=== PATIENT | female | born 1955 | race Caucasian/White ===

== ENCOUNTER 2017-01-23 16:33 | Emergency (ER) | payer OTHER ==
[2017-01-23 16:59] VITALS: RESP 15; TEMP 96.8
[2017-01-23] MEDS ORDERED: HYDROcodone-APAP 5 MG -325 MG TABLET PO ONE (17:03)
--- NOTE | 2017-01-23 17:07 | PDOC ---
Hand / Wrist Injury HPI - General Chief Complaint: Upper Extremity Problem/Injury Stated Complaint: SMASHED LEFT 2ND-4TH FINGERS AGAINST TRUCK Date Seen by Provider: 01/23/17 Time Seen by Provider: 17:04 Source: POSITIVE: Patient Exam Limitations: POSITIVE: No limitations Nurse's Notes Reviewed & Considered: Yes - History of Present Illness Initial Comments: This is a very pleasant 61-year-old female complaining of left hand pain. 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 She was wearing gloves at the time. Her third fourth and fifth finger were smashed and she put them into ice, also took ibuprofen. She comes in now because of continued pain predominantly in her ring and little finger. She denies any other injuries. Have you received a tetanus shot in the past 10 years?: Yes Body Location Affected: REPORTS: Upper Extremity (L) Timing: REPORTS: Abrupt Duration: 1 hour Severity: Moderate Location at Time of Onset: REPORTS: Work Context: REPORTS: Crush Location of Injury: REPORTS: Left, Hand, 3rd Finger, 4th Finger, 5th Finger Quality: REPORTS: Aching, "Pain", Sharpness, Throbbing Modifying Factors: REPORTS: Movement, Rest, Ice Associated Symptoms: REPORTS: Loss of Power Any Prior Injuries Related to Current Complaint?: No - Patient Home Medications Home Medications: Home Medications NK [No Home Medications Reported] 01/23/17 - Patient Allergies Allergies/Adverse Reactions: Allergies Allergy/AdvReac Type Severity Reaction Status Date / Time No Known Allergies Allergy Verified 01/23/17 16:42 Past Medical History - heen HEENT History: Denies History Cardiovascular History: Denies History Respiratory History: Denies History Gastrointestinal History: Denies History Genitourinary History: Denies History Endocrine History: Denies History Musculoskeletal History: Other (please comment) Prosthesis or Implant: No Additional Musculoskeletal History: MULTIPLE LEFT KNEE SURGERIES Neurological History: Denies History Blood Disorders: Denies History Psychiatric History: Denies History History of Sexually Transmitted Diseases: No Female Reproductive History: Hysterectomy Obstetrical History: Denies History Cancer History: Denies History In Past Year Been Physically Harmed or Verbally Threatened: No (PER PATIENT) History of MDRO: No History of Other Communicable Diseases: No Tobacco Use: Current Every Day Smoker Alcohol Use: None Substance Use Type: None Previous Surgical History: Yes Type / Date of Surgery: LEFT KNEE x5, PARTIAL HYSTERECTOMY Anesthesia Reactions: No Malignant Hyperthermia: No Family History of Malignant Hyperthermia: No ROS Constitution: REPORTS: Denies Symptoms Cardiovascular: REPORTS: Denies Cardiac Symptoms Respiratory: REPORTS: Denies Resp Symptoms Neurological: REPORTS: Denies Neuro Symptoms Gastrointestinal: REPORTS: Denies GI Symptoms Endocrine: REPORTS: Denies Symptoms Musculoskeletal: REPORTS: Joint Pain, Recent Injury Genitourinary: REPORTS: Denies Symptoms Eyes: REPORTS: Denies Symptoms ENT: REPORTS: Denies Symptoms Skin: REPORTS: Denies Skin Symptoms Lympathic: REPORTS: Denies Lympathic Symptoms Immunologic: POSITIVE: Denies Symptoms Psychiatric: POSITIVE: Denies Psych Symptoms Hand / Wrist Injury Exam - General Appearance General Appearance: POSITIVE: Alert, Cooperative, No Acute Distress - Extremities Upper Extremity: POSITIVE: No Evidence of FB, Soft Tissue Tenderness, Bony Tenderness, Ecchymosis, Limited ROM d/t Pain Neurovascular / Tendon: POSITIVE: Sensation Normal, Motor Normal, No Vascular Compromise, Tendon Function Normal Skin: POSITIVE: Warm, Dry - HEENT HEENT: POSITIVE: Head Inspection Nml, Eyes Inspection Nml, Ears Inspection Nml, Nose Inspection Nml, Oral/Dental Inspect. Nml, Pharynx Inspect. Nml, PERRL, EOMI - Respiratory / CVS Respiratory / CVS: POSITIVE: No Respiratory Distress Hand / Wrist Injury Progress - Results Reviewed by me Xrays/CTs/US Reviewed by me: Yes Discussed with Radiologist: Yes - Patient's Progress Pain Medication Addressed: POSITIVE: Yes Re-Examine Time: 18:30 Status: POSITIVE: Improved MDM / ED Course: Patient was evaluated, she received a [place] tablet, and x-rays of her left hand. Findings: X-ray of her left hand as read by me shows no acute osseous abnormalities. Fracture cannot be ruled out. Assessment: Crush injury left hand. Plan: Ulnar gutter splint, ibuprofen and Tylenol as needed, follow-up with orthopedics if no improvement in 7-10 days. - Consult Counseled: POSITIVE: Patient, RE: Radiology Results, RE: DX, RE: Need for F/U Patient Care Time - Estimated PCT Patient Care Time (In Minutes): 20 Vital Signs - Recent Vital Signs Vital Signs: Vital Signs (Last 8 hours) Temp Pulse Resp BP Pulse Ox 01/23/17 16:33 96.8 F 78 15 186/111 94 - VS Reviewed Vital Signs Reviewed: Yes Discharge Clinical Impression: Crush injury Discharge Disposition: Discharged to Home Condition: Stable Patient Instructions Given at Discharge: Contusion in Adults (ED), Crush Injury (ED)
--- NOTE | 2017-01-23 18:45 | DI ---
XR FINGERS MIN 2VW,01/23/2017 5:01 PM: Clinical History: Trauma Previous Exam: None at this facility. Findings: 3 views of the left hand are obtained, and demonstrate irregularity of the distal portion of the fift h middle phalanx. This does not appear to be acute. There are no acute fractures identified. There are mild degenerative changes predominantly involving the distal interphalangeal joints. The surrounding soft tissues are unremarkable. Impression: Irregularity of the distal portion of the left fifth middle phalanx. This does not appear to be an ac [place] fracture. Correlate with tenderness to palpation.
== END 2017-01-23 18:54 | disposition home or self-care (01) ==
LOC: ER 16:33
DX: S67.193A Crushing injury of left middle finger, initial encounter (principal); S67.195A Crushing injury of left ring finger, initial encounter; S67.197A Crushing injury of left little finger, initial encounter; W23.1XXA Caught, crushed, jammed, or pinched between stationary objects, initial encounter; Y92.488 Other paved roadways as the place of occurrence of the external cause; Y99.0 Civilian activity done for income or pay
CPT/HCPCS: 73130; 73140; 99282